=== PATIENT | female | born 2000 ===

== ENCOUNTER 2025-03-20 06:12 | Outpatient (CLI) | payer OTHER ==
[2025-03-20 07:22] LABS: BASO % 0.5 % (0.1-1.2); EOS # 0.09 (0.04-0.54); EOS % 1.2 % (0.7-7.0); LYMPH # 2.05 (1.18-3.74); LYMPH % 27.9 % (19.3-53.1); MEAN PLATELET VOLUME 9.90 fl (9.4-12.4); MONO # 0.45 (0.24-0.82); MONO % 6.1 % (4.7-12.5); NEUT # 4.71 (1.56-6.13); NEUT % 64.0 % (34.0-71.1); RED CELL DISTRIBUTION WIDTH 11.8 % (11.6-14.4)
[2025-03-20 07:42] LABS: URINE APPEARANCE Clear; URINE BILIRRUBIN Negative (NEGATIVE); URINE BLOOD Negative; URINE COLOR Yellow; URINE GLUCOSE Negative (NEGATIVE); URINE KETONE Negative (NEGATIVE); URINE LEUKOCYTE Moderate; URINE NITRATE Negative; URINE PROTEIN Negative (NEGATIVE); URINE UROBILINOGEN 0.2 E.U./dl
[2025-03-20 07:46] LABS: URINE BACTERIA 1209.1 uL (0.0-1933); URINE EPITHELIAL CELLS 35.7 uL (0.0-38.8); URINE RBC 5.8 uL (0.0-20.8); URINE WBC 84.0 uL (0.0-23.2)
[2025-03-20 07:59] LABS: URINE CAST 0.28 uL (0.0-1.40)
[2025-03-20 08:32] LABS: ALT/SGPT 21.0 U/L (12-78); AST/SGOT 17.0 U/L (15-37); BILIRUBIN TOTAL 0.44 mg/dL (0.3-1.2); BUN CREA RATIO 21.0 (7.0-25.0); CREATININE SERUM 0.42 mg/dL (0.55-1.02); GFR 183.83; GLOBULINA 3.9 G/DL (2.4-3.5); GLUCOSE FASTING 73.0 mg/dL (65-100); OSMOLALITY SERUM 275.0 MOSM/KG (275-295); T4 FREE 1.03 NG/ML (0.76-1.46); TSH 3.87 uIU/mL (0.358-3.74)
[2025-03-20 10:03] LABS: RH POSITIVE
[2025-03-21 08:09] LABS: RUBELLA IGG 1.88 index (Immune >0.99); hav igm Negative (Negative); hep b c Negative (Negative); hep b s ag Negative (Negative)
[2025-03-21 12:11] LABS: VARICELLA ZOSTER VIRUS IGG Reactive (Non Reactive)
== END 2025-03-20 06:21 | disposition home or self-care (01) ==
LOC: LAB 06:12
PROVIDERS: ATTEND Obstetrics & Gynecology
DX: O09.91 Supervision of high risk pregnancy, unspecified, first trimester (principal)